=== PATIENT | male | born 1995 | race African-American/Black ===

== ENCOUNTER 2016-12-17 19:00 | Emergency (ER) | payer BC ==
[~2016-12-17] VITALS: Ht 182.9 cm; Wt 95.3 kg
[~2016-12-17 19:00] MED LIST: AMOXICILLIN 50500 M1 PO; AMOXICILLIN 50500 MG PO; FLEXERIL PO; FLONASE 0.05%50 MCG NASAL; IBUPROFEN 600600 M1 PO; MEDROLDOSEPACK PO; NAPROSYN500 MG PO; NOHOMEMEDICATIONS
[2016-12-17 19:08] VITALS: BP 128/77
[2016-12-17] MEDS ORDERED: CLOTRIMAZOLE 1%15 G1 TOP (20:41)
== END 2016-12-17 21:00 | disposition home or self-care (01) ==
LOC: ER 19:00
DX: B35.6 Tinea cruris (principal); F10.99 Alcohol use, unspecified with unspecified alcohol-induced disorder; F12.10 Cannabis abuse, uncomplicated; Z88.5 Allergy status to narcotic agent